=== PATIENT | male | born 1955 | race Caucasian/White ===

== ENCOUNTER 2017-06-18 10:30 | Emergency (ER) | payer BC, OTHER ==
[~2017-06-18] VITALS: Ht 185.4 cm; Wt 98.6 kg
[2017-06-18 10:43] VITALS: BP 152/86
--- NOTE | 2017-06-18 10:54 | NUR ---
PATIENT AMBULATED TO ER BED 8.
--- NOTE | 2017-06-18 11:00 | NUR ---
PATIENT PRESENTS TO ED WITH C/O LOWER BACK SORENESS WITH BLE SHARP SHOOTING PAIN X 4 DAYS DENIES INJURY HX---BPH RX---FLOMAX, ANDROZINE; DENIES N/V/D; SKIN IS PINK/WARM/DRY; AAOX4 WITH EVEN AND STEADY GAIT; LUNGS CLEAR BL; HR EVEN AND REGULAR; PT DENIES ANY FEVER, CP, SOB, OR COUGH AT THIS TIME; PATIENT STATES PAIN OF 6/10 AT THIS TIME; VSS; PATIENT POSITIONED FOR COMFORT; HOB ELEVATED; BEDRAILS UP X2; BED DOWN. ER MD MADE AWARE OF PT STATUS.
--- NOTE | 2017-06-18 11:02 | NUR ---
DR ALDANA EVALUATING AAO PT AT BEDSIDE
[2017-06-18 11:21] VITALS: BP 141/81
--- NOTE | 2017-06-18 11:21 | NUR ---
Patient discharged with v/s stable. Written and verbal after care instructions given and explained. Patient verbalized understanding. Ambulatory with steady gait. All questions addressed prior to discharge. Advised to follow up with PMD.
== END 2017-06-18 11:21 | disposition home or self-care (01) ==
LOC: MED 10:30
DX: M54.16 Radiculopathy, lumbar region (principal)
CPT/HCPCS: 99281